=== PATIENT | female | born 1990 | race Caucasian/White ===

== ENCOUNTER 2020-03-01 08:00 | Day surgery (SDC) | payer OTHER ==
[~2020-03-01] VITALS: Ht 160 cm; Wt 69.8 kg
--- NOTE | ~2020-03-01 | OR ---
[facility] [address], [place] [address] Draft DATE OF OPERATION: 03/01/2020 SURGEON: Anton Storm MD PREOPERATIVE DIAGNOSES: 1. Pelvic pain. 2. Deep dyspareunia. POSTOPERATIVE DIAGNOSES: 1. Pelvic pain. 2. Deep dyspareunia. 3. Pelvic adhesions. 4. Endometriosis of pelvic peritoneum. 5. Left ovarian cyst. PROCEDURES: 1. Laparoscopic lysis of adhesions. 2. Fulguration of endometriosis. 3. Drainage of left ovarian cyst. COOK SUPERVISOR: Sadie Handy DO. ANESTHESIA: General. ESTIMATED BLOOD LOSS: 5 mL. SPECIMEN: None. DRAINS: None. FINDINGS: Cervix, thick closed. Normal size and shape uterus. Anterior cul-de-sac had evidence of previous x2 with some scarring and elevation of the bladder. The posterior cul-de-sac was free of any adhesions, but there was one small dark endometriosis implant on the midportion of the left uterosacral ligament. The left tube showed evidence of PATIENT NAME: BE MCKEON OPERATIVE REPORT DATE OF : 86 REPORT #: [id number] PHYSICIAN: ANTON STORM MD PCP: ANTON STORM MD REPORT IS CONFIDENTIAL AND NOT TO BE RELEASED WITHOUT AUTHORIZATION [address] [address] Draft previous tubal ligation. The left ovary had some filmy adhesions covering the ovary with approximate 2 cm simple cyst on the medial aspect containing clear yellow fluid, thought to be functional cyst. There were two bands of omental adhesion attached to the left pelvic sidewall and left round ligament. The right fallopian tube showed evidence of previous tubal ligation. No adhesions. Right ovary is normal size and shape without any evidence of endometriosis or adhesions. DESCRIPTION OF PROCEDURE: The patient was brought to the operating room, placed in supine position. After adequate general anesthesia was obtained, she was placed in dorsal lithotomy position, prepped and draped in usual sterile fashion. A Newell catheter was placed in the bladder. Weighted speculum was placed in the vagina and the anterior lip of the cervix was grasped with an Allis clamp. The cervix was then serially dilated and a Hulka clamp carefully introduced through the endocervical canal and attached to the anterior lip of the cervix. The Allis clamp and the weighted speculum were removed. Attention was then drawn to the abdomen. A small infraumbilical skin incision was made with a scalpel after injecting the area with 0.25% Marcaine with epinephrine. A 5 mm direct entry trocar and sleeve was then used with a 5 mm laparoscope to enter the abdomen under direct visualization while lifting up the anterior abdominal wall and with the carbon dioxide insufflator turned on to help insufflate the bladder as soon as the tip of the trocar entered the abdomen. The trocar was removed and then the laparoscope placed through the port and the above findings could be seen. A small skin incision was made in the left lateral abdomen just below the level of the umbilicus. This was done after transilluminating the abdominal wall to avoid any vessels injecting the area with 0.25% Marcaine with epinephrine, making a small skin incision with a scalpel and then using a bladed trocar and sleeve, entered the abdomen under direct visualization. Trocar was removed and a blunt grasper inserted. Same procedure was done on the right side and the second blunt trocar inserted on this side. The above findings were confirmed with the LigaSure bipolar forceps were used to identify, grasp the omental adhesions and which were then cauterized and cut, removing the omentum from the area. Good hemostasis was noted. The [place] forceps with monopolar attachment was used to grasp the small endometrial implant on the uterosacral ligament and cauterized the endometriosis. During this, care was taken to keep the sigmoid away from the area of dissection. Again, good hemostasis was noted here. The ovary was then inspected. The filmy adhesions were bluntly from the ovary, cauterized and cut with the [place] bipolar cautery forceps. The cyst appeared very soft and the cyst wall was grasped, which opened the cyst and a small amount of clear yellow straw-colored fluid came from the cyst. The suction wagon driver salesperson was used to irrigate the cyst. No bleeding was noted. No additional fluid or masses were noted in the cyst wall, so the entire pelvis was irrigated, PATIENT NAME: BE MCKEON OPERATIVE REPORT DATE OF : 86 REPORT #: [id number] PHYSICIAN: ANTON STORM MD PCP: ANTON STORM MD REPORT IS CONFIDENTIAL AND NOT TO BE RELEASED WITHOUT AUTHORIZATION [facility] [address], [place] [address] Draft suctioned examined and noted to have good hemostasis. The gas was allowed to escape from the abdomen lowering the pressure and good hemostasis was noted. At this point, all instruments were removed. The rest of the gas allowed to escape and the final sleeves were removed. The 3 skin incisions were closed using subcuticular stitches of 4-0 Vicryl suture. The Hulka clamp was removed and the cervix noted to have good hemostasis. Newell catheter removed. The patient tolerated the procedure well, went to recovery room in good condition. The sponge, needle, instrument counts correct at the end of the procedure. MD DOMINIK Keys/MODL /[id number] Copies: ~ PATIENT NAME: BE MCKEON OPERATIVE REPORT DATE OF : 86 REPORT #: [id number] PHYSICIAN: ANTON STORM MD PCP: ANTON STORM MD REPORT IS CONFIDENTIAL AND NOT TO BE RELEASED WITHOUT AUTHORIZATION
[~2020-03-01 08:00] MED LIST: IBU-200200 MG; ULTRAM50 MG PO
== END 2020-03-01 17:05 | disposition home or self-care (01) ==
LOC: OPS 08:00 → DS 08:00 → OPS 10:00 → DS 10:00 → OPS 17:05
PROVIDERS: ATTEND General Practice
PROC: 0W9 Anatomical Regions, General, Drainage (ICD-10-PCS; 2020-03-01)
PROC: 0UN14ZZ Release Left Ovary, Percutaneous Endoscopic Approach (ICD-10-PCS; 2020-03-01)
PROC: 0U544ZZ Destruction of Uterine Supporting Structure, Percutaneous Endoscopic Approach (ICD-10-PCS; principal; 2020-03-01 10:00)
DX: N80.3 Endometriosis of pelvic peritoneum (principal); N83.292 Other ovarian cyst, left side; N94.12 Deep dyspareunia; N73.6 Female pelvic peritoneal adhesions (postinfective); D64.9 Anemia, unspecified; Z88.5 Allergy status to narcotic agent; Z98.51 Tubal ligation status; Z79.899 Other long term (current) drug therapy
CPT/HCPCS: 00840; J0131; J0330; J1100; J1170; J1885; J2001; J2405; J2704; J3010; J7121